=== PATIENT | female | born 1985 | race Caucasian/White ===

== ENCOUNTER → 2017-07-22 08:47 | Outpatient (CLI) | payer OTHER, SELFPAY ==
[2017-07-22 10:24] LABS: Absolute Lymphocyte Count 2.41 X10^3/ul (0.83-4.51); Absolute Neutrophil Count 3.5 X10^3/uL (2.0-7.7); Basophil# 0.03 X10^3/uL; Basophil% 0.5 % (0-1); Eosinophil# 0.25 X10^3/uL; Eosinophils% 3.8 % (0-5); Hematocrit 37.5 % (37-47); Hemoglobin 12.6 g/dl (12.0-15.0); Lymphocyte # 2.41 X10^3/ul (4.0); Lymphocyte % 36.2 % (19-41); Mean Corp Hgb Conc 33.6 g/gl (32-36); Mean Corpuscular Hgb 29.3 pg (27.0-32.0); Mean Corpuscular Volume 87.2 fL (81-99); Mean Platelet Vol. 10.5 fl (6.2-12.0); Monocyte# 0.45 X10^3/uL; Monocyte% 6.8 % (0-10); Neutrophil # 3.51 X10^3/uL (2.7-7.7); Neutrophil % 52.7 % (47-70); Platelet Count 306 K/mm3 (150-450); RBC Distribution Width SD 44.5 fl (35.1-43.9); White Blood Count 6.7 K/mm3 (4.4-11.0)
[2017-07-22 10:25] LABS: POSITIVE COUNT NO; POSITIVE DIFFERENTIAL NO; POSITIVE MORPHOLOGY NO
[2017-07-22 10:48] LABS: Anion Gap 7 (5-15); BUN 20 mg/dL (7-18); BUN/Creat Ratio 20.7 RATIO (10-20); Calcium,Total 8.7 mg/dL (8.5-10.1); Chloride 105 mmol/L (98-107); Cholesterol 172 mg/dL (200); Creatinine, Serum 0.96 mg/dL (0.55-1.02); EST Glomerular Filtration Rate 70 mL/min (>60); Est Glom Filt Rate - Afr Amer 85 mL/min (>60); Glucose 84 mg/dL (74-106); High Density Lipoprotein 41 mg/dL; Potassium 4.2 mmol/L (3.5-5.1); Sodium Level 139 mmol/L (136-145); Thyroid Stim Hormone (TSH) 1.63 uIU/mL (0.358-3.74); Triglycerides 113 mg/dL; Very Low Density Lipoprotein 23 mg/dL (5-40)
[2017-07-22 11:27] LABS: Vitamin D,25 Hydroxy 48.4 ng/mL (29.95-100.01)
== END ==
PROVIDERS: Family Provider Family Medicine; PCP Family Medicine; Visit Provider Family Medicine
DX: R53.83 Other fatigue (principal); R03.0 Elevated blood-pressure reading, without diagnosis of hypertension
CPT/HCPCS: 36415; 80048; 80061; 82306; 84443; 85025

== ENCOUNTER → 2017-11-03 11:32 | Outpatient (CLI) | payer OTHER, SELFPAY ==
[2017-11-03 14:14] LABS: hCG Titer Quant., Serum < 1 mIU/mL (<9 non-preg)
[2017-11-03 14:20] LABS: Free T3 2.7 pg/mL (2.18-3.98); T4 Free Direct 0.99 ng/dL (0.76-1.46); Thyroid Stim Hormone (TSH) 1.55 uIU/mL (0.358-3.74)
[2017-11-07 14:23] LABS: HPV Reflexed? NOT INDICATED
== END ==
PROVIDERS: Visit Provider Obstetrics & Gynecology
DX: Z12.4 Encounter for screening for malignant neoplasm of cervix (principal); N92.6 Irregular menstruation, unspecified
CPT/HCPCS: 36415; 84439; 84443; 84481; 84702; 88175; G0145

== ENCOUNTER → 2018-11-24 13:31 | Outpatient (CLI) | payer OTHER, SELFPAY ==
[2018-05-08 06:26] VITALS: BMI 29.7
== END ==
PROVIDERS: Visit Provider Obstetrics & Gynecology
DX: Z12.4 Encounter for screening for malignant neoplasm of cervix (principal); Z11.3 Encounter for screening for infections with a predominantly sexual mode of transmission

== ENCOUNTER → 2020-06-12 17:10 | Outpatient (CLI) | payer OTHER, SELFPAY ==
[2020-06-12 14:37] VITALS: BMI 34.0
[2020-06-12 18:12] LABS: Amphetamine Urine VISTA NEGATIVE (<1000 ng/mL); Barbiturate Urine VISTA NEGATIVE (< 200 ng/mL); Benzodiazepine Urine VISTA NEGATIVE (< 200 ng/mL); Cocaine Urine VISTA NEGATIVE (< 300 ng/mL); Ecstacy Urine VISTA NEGATIVE (< 500 ng/mL); Methadone Urine VISTA NEGATIVE (< 300 ng/mL); PCP Urine VISTA NEGATIVE (< 25 ng/mL); THC Urine VISTA NEGATIVE (< 50 ng/mL); Vista UDS pH Range 6
[2020-06-16 07:06] LABS: Chlamydia By Nucleic Acid AMP Negative (Negative)
[2020-06-16 16:07] LABS: Gonococcus By Nucleic Acid AMP Negative (Negative)
== END ==
PROVIDERS: PCP Family Medicine; Referring Provider Obstetrics & Gynecology; Visit Provider Obstetrics & Gynecology
DX: O09.90 Supervision of high risk pregnancy, unspecified, unspecified trimester (principal); Z3A.00 Weeks of gestation of pregnancy not specified
CPT/HCPCS: 80307; 87086; 87491; 87591

== ENCOUNTER → 2020-07-04 07:41 | Outpatient (CLI) | payer OTHER, SELFPAY ==
[2020-06-12 14:37] VITALS: BMI 34.0
[2020-07-04 09:13] LABS: NATERA MAILED SPECIMEN
[2020-07-04 09:25] LABS: Absolute Lymphocyte Count 1.92 X10^3/uL (0.83-4.51); Absolute Neutrophil Count 4.5 X10^3/uL (2.0-7.7); Basophil# 0.03 X10^3/uL; Basophil% 0.4 % (0-1); Eosinophil# 0.15 X10^3/uL; Eosinophils% 2.1 % (0-5); Hematocrit 37.3 % (37-47); Hemoglobin 12.1 g/dL (12.0-15.0); Lymphocyte # 1.92 X10^3/ul (0.83-4.51); Lymphocyte % 27.5 % (19-41); Mean Corp Hgb Conc 32.4 g/dL (32-36); Mean Corpuscular Hgb 29.6 pg (27.0-32.0); Mean Corpuscular Volume 91.2 fL (81-99); Mean Platelet Vol. 10.2 fl (6.2-12.0); Monocyte# 0.33 X10^3/uL; Monocyte% 4.7 % (0-10); NRBC Flagged by Analyzer 0 % (0-5); Neutrophil # 4.53 X10^3/uL (2.7-7.7); Platelet Count 253 K/mm3 (150-450); Red Blood Count 4.09 M/mm3 (4.2-5.4)
[2020-07-04 09:47] LABS: Glucose Challenge Gest 1H 50g 81 mg/dL (70-140)
[2020-07-04 10:32] LABS: HIV - WCH Non-Reactive (Nonreactive); Hepatitis B Surface Antigen Non-Reactive (Nonreactive); Hepatitis C Antibody Non-Reactive (Nonreactive); Rubella IgG Reactive (Nonreactive); Syphilis Antibodies Non-reactive
== END ==
PROVIDERS: PCP Family Medicine; Referring Provider Obstetrics & Gynecology; Visit Provider Obstetrics & Gynecology
DX: Z31.430 Encounter of female for testing for genetic disease carrier status for procreative management (principal); O09.511 Supervision of elderly primigravida, first trimester; Z3A.00 Weeks of gestation of pregnancy not specified
CPT/HCPCS: 36415; 82950; 85025; 86703; 86762; 86780; 86803; 86850; 86900; 86901; 87340

== ENCOUNTER → 2020-09-26 08:32 | Outpatient (CLI) | payer OTHER, SELFPAY ==
[2020-09-05 15:41] VITALS: BMI 34.0
== END ==
PROVIDERS: PCP Family Medicine; Visit Provider Obstetrics & Gynecology
DX: Z36.9 Encounter for antenatal screening, unspecified (principal)
CPT/HCPCS: 36415

== ENCOUNTER → 2020-10-17 09:05 | Outpatient (CLI) | payer OTHER, SELFPAY ==
[2020-10-03 15:30] VITALS: BMI 38.2
[2020-10-17 10:14] LABS: Absolute Lymphocyte Count 2.07 X10^3/uL (0.83-4.51); Absolute Neutrophil Count 9.3 X10^3/uL (2.0-7.7); Basophil# 0.03 X10^3/uL; Basophil% 0.2 % (0-1); Eosinophil# 0.26 X10^3/uL; Eosinophils% 2.1 % (0-5); Hematocrit 34.7 % (37-47); Hemoglobin 11.4 g/dL (12.0-15.0); Lymphocyte # 2.07 X10^3/ul (0.83-4.51); Lymphocyte % 16.8 % (19-41); Mean Corp Hgb Conc 32.9 g/dL (32-36); Mean Corpuscular Hgb 30.2 pg (27.0-32.0); Mean Corpuscular Volume 91.8 fL (81-99); Mean Platelet Vol. 10.2 fl (6.2-12.0); Monocyte# 0.58 X10^3/uL; Monocyte% 4.7 % (0-10); NRBC Flagged by Analyzer 0 % (0-5); Neutrophil % 75.6 % (47-70); Platelet Count 262 K/mm3 (150-450); RBC Distribution Width SD 43.4 fl (35.1-43.9); Red Blood Count 3.78 M/mm3 (4.2-5.4); White Blood Count 12.3 K/mm3 (4.4-11.0)
[2020-10-17 10:32] LABS: Glucose Challenge Gest 1H 50g 99 mg/dL (70-140)
== END ==
PROVIDERS: PCP Family Medicine; Referring Provider Obstetrics & Gynecology; Visit Provider Obstetrics & Gynecology
DX: Z13.1 Encounter for screening for diabetes mellitus (principal)
CPT/HCPCS: 82950; 85025

== ENCOUNTER → 2020-12-08 14:26 | Outpatient (CLI) | payer OTHER, SELFPAY ==
--- NOTE | 2020-12-08 14:27 | US_ITS ---
STUDY: SECOND AND THIRD TRIMESTER OBSTETRICAL ULTRASOUND - LIMITED REASON FOR EXAM: Female, 35 years old. growth PRIOR ULTRASOUND: Prior comparison studies are not available for review at this time. TECHNIQUE: Transabdominal TECHNICAL QUALITY: Adequate. FINDINGS: There is a single intrauterine fetus. The fetus is in a cephalic presentation. There is demonstrated cardiac activity with a heart rate of 135 bpm. There is a normal amniotic fluid volume. The largest amniotic fluid pocket measures 5.6 cm. The amniotic fluid index (DONATO) is 60.2 cm. The placenta is posterior in location and is not low lying. There are Grade 1 placental changes. The cervix measures cm in length: 3.3. Ovaries are not visualized. BIOMETRY: BPD: 86 mm: 34 weeks, 4 days HC: 316 mm: 35 weeks, 3 days AC: 314 mm: 35 weeks, 2 days FL: 65 mm: 33 weeks, 1 days CI: 78 FL/AC: 21 FL/BPD: 75 HC/AC: 1 age by current US: 34 weeks, 5 days. JOS by current US: 11.3.21. Estimated weight: 2515 grams, +/- 377 grams, 34 %. Age by LMP: 35 weeks, 2 days. JOS by LMP: 10.30.21. US/OB Limited With Biometrics IMPRESSION: There is a single live intrauterine with a heart rate of 135 bpm. age by current US: 34 weeks, 5 days. JOS by current US: 11.3.21. Estimated weight: 2515 grams, +/- 377 grams, 34 %. Electronically Signed: Siva Caba MD at 16:22 EDT , Service support ,
== END ==
PROVIDERS: PCP Family Medicine; Referring Provider Obstetrics & Gynecology; Visit Provider Obstetrics & Gynecology
DX: O99.211 Obesity complicating pregnancy, first trimester (principal); E66.9 Obesity, unspecified; Z3A.34 34 weeks gestation of pregnancy
CPT/HCPCS: 76816

== ENCOUNTER → 2020-12-19 17:17 | Outpatient (CLI) | payer OTHER, SELFPAY | PROVIDERS: PCP Family Medicine; Referring Provider Obstetrics & Gynecology; Visit Provider Obstetrics & Gynecology | DX: O09.90 Supervision of high risk pregnancy, unspecified, unspecified trimester (principal); Z3A.00 Weeks of gestation of pregnancy not specified | CPT/HCPCS: 87077; 87081; 87186 ==

== ENCOUNTER → 2020-12-26 17:08 | Outpatient (CLI) | payer OTHER, SELFPAY ==
[2020-12-26 17:39] LABS: Protein, Urine (Random) 14.9 mg/dL (<11.9); Protein:Creat Ratio 139 mg/g CRE (0-200)
== END ==
PROVIDERS: PCP Family Medicine; Referring Provider Obstetrics & Gynecology; Visit Provider Obstetrics & Gynecology
DX: Z34.93 Encounter for supervision of normal pregnancy, unspecified, third trimester (principal); Z3A.37 37 weeks gestation of pregnancy
CPT/HCPCS: 82570; 84156

== ENCOUNTER → 2021-01-09 17:01 | Outpatient (CLI) | payer OTHER, SELFPAY | PROVIDERS: PCP Family Medicine; Visit Provider Obstetrics & Gynecology | DX: Z34.93 Encounter for supervision of normal pregnancy, unspecified, third trimester (principal) | CPT/HCPCS: 87635; U0005; U0003 ==

== ENCOUNTER 2021-01-15 07:04 | Inpatient (IN) | payer OTHER, SELFPAY ==
[2021-01-15] VITALS (64 sets, daily range): BP systolic 119–166; BP diastolic 55–107; PULSE 77–121; TEMP 36.4–36.8; O2SAT 97–100; BMI 42.0
[2021-01-15] MEDS: Lactated Ringers 1,000 ML 150 ML IV ×2 (07:40→13:17)
[2021-01-15] MEDS: Oxytocin 30 units/NS 500 ml 30 UNITS/500 ML IV.SOLN IV (08:05)
[2021-01-15 08:07] LABS: Absolute Lymphocyte Count 2.39 X10^3/uL (0.83-4.51); Absolute Neutrophil Count 8.2 X10^3/uL (2.0-7.7); Basophil# 0.04 X10^3/uL; Basophil% 0.3 % (0-1); Eosinophil# 0.31 X10^3/uL; Eosinophils% 2.6 % (0-5); Hematocrit 34.4 % (37-47); Hemoglobin 11.5 g/dL (12.0-15.0); Lymphocyte # 2.39 X10^3/ul (0.83-4.51); Lymphocyte % 20.3 % (19-41); Mean Corp Hgb Conc 33.4 g/dL (32-36); Mean Corpuscular Hgb 29.8 pg (27.0-32.0); Mean Corpuscular Volume 89.1 fL (81-99); Mean Platelet Vol. 10.2 fl (6.2-12.0); Monocyte# 0.75 X10^3/uL; Monocyte% 6.4 % (0-10); NRBC Flagged by Analyzer 0 % (0-5); Neutrophil # 8.16 X10^3/uL (2.7-7.7); Neutrophil % 69.5 % (47-70); Platelet Count 230 K/mm3 (150-450); RBC Distribution Width CV 14.1 % (11.6-14.6); RBC Distribution Width SD 45.5 fl (35.1-43.9); Red Blood Count 3.86 M/mm3 (4.2-5.4); White Blood Count 11.8 K/mm3 (4.4-11.0)
--- NOTE | 2021-01-15 08:07 | HP.PCM.OB_ITS ---
HPI - General General Date of Admission: 01/15/21 HPI Narrative MICHELLE JOHNSON, is a 35 F who presents for iol sec to postdates and ama Maternal Data Information JOS Calculator Estimated Delivery Date Method Current WG Current Estimate 01/10/21 LMP (Certain) 40w 5d PFSH PFSH Medical History Positive GBS test Seasonal allergies SOB (shortness of breath) Home Medications multivitamin 1 tablet PO DAILY 06/03/20 [History Last Taken Unknown] cetirizine 10 mg tablet 10 mg PO DAILY PRN 10/17/20 [History Last Taken Unknown] Allergy/AdvReac Type Severity Reaction Status Date / Time Penicillins Allergy Unknown Unknown Verified 01/13/21 10:41 animal dander Allergy Unknown Verified 01/13/21 10:41 tree nut AdvReac Severe Other Verified 01/13/21 10:41 Family History Mother Hypertension Father Colon cancer Surgical History No significant past surgical history Social History adopted: No household members: spouse housing: house current occupational status: employed current occupation: [employer] Smoking Status: Never smoker second hand exposure: No alcohol intake: never substance use type: does not use seatbelt use: always do you feel safe at home: Yes additional social history: - Jesus Pelaez History 1 Elective abortions Hx Para Spontaneous abortions Hx # Term Pregnancies Ectopic pregnancies Hx # Pregnancies Multiple births # of living children Visit Details Expected Delivery Route/Plan Labor Preferences- CB/BF classes: declined labor support person: Jesus labor intervention preferences: open to standard interventions pain management options preferred: would like to go as long as possible without an epidural but open to epidural cut cord/dad catch: no - squeamish, patient wants to do both : no PP control planned: OCPs discussed possible routes of delivery and associated risks: discussed possible delivery modalities and possible indications for each including R/B/A of , VAVD, FAVD, and CS. questions answered. special requests: [] Plans covid status: got moderna flu vaccine: [] tdap vaccine: given rhogam: na LARC form signed: declined movement and labor precautions reviewed. Problem list reviewed and updated with the most current plan of care details and appropriate orders placed. Relevant counseling for the gestational age provided. Continue routine care and follow up unless otherwise noted in visit notes/problem list details OB Flowsheet Initial Weight: Not Recorded Date -?-?-?-?-?-?-?-?-?-?-?-?- EGA Weight BP Urine Prot -?-?-?-?-?-?-?-?-?-?-?-?- Glucose FHR FuHt Pres Dilation -?-?-?-?-?-?-?-?-?-?-?-?- Effaced St Visit Note 07/11/20 -?-?-?-?-?-?-?-?-?-?-?-?- 13w 6d 191 lb 132/80 -?-?-?-?-?-?-?-?-?-?-?-?- 163 -?-?-?-?-?-?-?-?-?-?-?-?- GP - no cramping or bleeding. Anatomy scan ordered. PRR. Having a girl! 08/08/20 -?-?-?-?-?-?-?-?-?-?-?-?- 17w 6d 203 lb 6 oz 128/78 Nega tive -?-?-?-?-?-?-?-?-?-?-?-?- Negative 150 -?-?-?-?-?-?-?-?-?-?-?-?- GP - no cramping or bleeding. Anatomy 10. 09/05/20 -?-?-?-?-?-?-?-?-?-?-?-?- 21w 6d 213 lb 126/80 -?-?-?-?-?-?-?-?-?-?-?-?- 150 -?-?-?-?-?-?-?-?-?-?-?-?- SM- no vb lof go od fm. afp screening. 10/03/20 -?-?-?-?-?-?-?-?-?-?-?-?- 25w 6d 216 lb 142/82 Negative -?-?-?-?-?-?-?-?-?-?-?-?- Negative 145 25 -?-?-?-?-?-?-?-?-?-?-?-?- GP - no LOF, VB, DFM, ctx. Discussed GCT next visit. 10/17/20 -?-?-?-?-?-?-?-?-?-?-?-?- 27w 6d 219 lb 122/80 -?-?-?-?-?-?-?-?-?-?-?-?- 145 28 -?-?-?-?-?-?-?-?-?-?-?-?- SM- no vb lof go od fm nor egular ctx tdap 10/31/20 -?-?-?-?-?-?-?-?-?-?-?-?- 29w 6d 224 lb 6 oz 132/76 Nega tive -?-?-?-?-?-?-?-?-?-?-?-?- Negative 140 30 -?-?-?-?-?-?-?-?-?-?-?-?- SM- no vb lof go od fm no reuglar ctx got first moderna shot 11/13/20 -?-?-?-?-?-?-?-?-?-?-?-?- 31w 5d 227 lb 4 oz 130/86 Nega tive -?-?-?-?-?-?-?-?-?-?-?-?- Negative 150 31 -?-?-?-?-?-?-?-?-?-?-?-?- GP - no LOF, VB, DFM, ctx. LARC form signed. 11/27/20 -?-?-?-?-?-?-?-?-?--?-?-?- 33w 5d 229 lb 136/76 Negative -?-?-?-?-?-?-?-?-?-?-?-?- Negative 140 34 -?-?-?-?-?-?-?-?-?-?-?-?- SM- no vb lof go od fm no regular ctx declined 12/11/20 -?-?-?-?-?-?-?-?-?-?-?-?- 35w 5d 231 lb 132/86 Negative -?-?-?-?-?-?-?-?-?-?-?-?- Negative 140 36 -?-?-?-?-?-?-?--?-?-?-?-?- SM- no vb lof go od fm no regular ctx 12/19/20 -?-?-?-?-?-?-?-?-?-?-?-?- 36w 6d 235 lb 122/80 Negative -?-?-?-?-?-?-?-?-?-?-?-?- Negative 125 37 Cephalic 1 -?-?-?-?-?-?-?-?-?-?-?-?- 50 -3 GP - no LO F, VB, DFM, ctx. Discussed labor preferences and routes of delivery. 12/26/20 -?-?-?-?-?--?-?-?-?-?-?-?- 37w 6d 241 lb 140/80 132/82 Trace -?-?-?-?-?-?-?-?-?-?-?-?- Negative 130 38 Cephalic 2 -?-?-?-?-?-?-?-?-?-?-?-?- SM- no vb lof go od fm no regular ctx 01/02/21 -?-?-?-?-?-?-?-?-?-?-?-?- 38w 6d 239 lb 110/68 Negative -?-?-?-?-?-?-?-?-?-?-?-?- Negative 130 39 Cephalic -?-?-?-?-?-?-?-?-?-?-?-?- SM- no vb lof go od fm today some dec fm another day no regular ctx, reviewed kik counts 01/09/21 -?-?-?-?-?-?-?-?-?-?-?-?- 39w 6d 241 lb -?-?-?-?-?-?-?-?-?-?-?-?- 130 39 Cephalic 3 -?-?-?-?-?-?-?-?-?-?-?-?- Sm- no vb lof go od fm no reuglar ctx 01/13/21 -?-?-?-?-?-?-?--?-?-?-?-?- 40w 3d 239 lb 119/81 Negative -?-?-?-?-?-?-?-?-?-?-?-?- Negative 150 4 -?-?-?-?-?-?-?-?-?-?-?-?- 60 -1 Sm- no vb lof good fm no regular ctx plan IOL 01/15/21 -?-?-?-?-?-?-?-?-?-?-?-?- 40w 5d 236 lb 15.951 oz 136/85 -?-?-?-?-?-?-?-?-?-?-?-?- -?-?-?-?-?-?-?--?-?-?-?-?- NST FHR Rate Baby A Baseline: 130 Variability:: Moderate Accelerations:: 15 x 15 Decelerations:: None NST Reactive:: Yes FHR Category:: Category I Uterine Activity:: irregular ROS Constitutional Constitutional: Reports systems reviewed and no addt'l complaints, except as documented Eyes Eyes: Denies change in vision ENT HEENT: Reports systems reviewed and no addt'l complaints, except as documented; Denies headache(s) Cardiovascular Cardiovascular: Reports systems reviewed and no addt'l complaints, except as documented; Denies chest pain or dyspnea Respiratory/Chest Respiratory/Chest: Reports systems reviewed and no addt'l complaints, except as documented Gastrointestinal Gastrointestinal: Reports systems reviewed and no addt'l complaints, except as documented; Denies abdominal pain Genitourinary Genitourinary: Reports systems reviewed and no addt'l complaints, except as documented, contractions Details: present (irregular) and movement Details: present; Denies dysuria or genital lesions Musculoskeletal Musculoskeletal: Reports systems reviewed and no addt'l complaints, except as documented Neurologic Neurologic: Reports systems reviewed and no addt'l complaints, except as documented Endocrine Endocrinology: Reports systems reviewed and no addt'l complaints, except as documented Vital Signs Vital Signs Vital Signs: 01/15/21 08:01 Pulse Rate 93 Blood Pressure 136/85 H BP Systolic 136 BP Diastolic 85 Weight Weight: 236 lb 15.951 oz Body Mass Index (BMI) 42.0 Physical Exam Const alert, oriented x3, no apparent distress and healthy appearing HEENT normocephalic and moist oral mucous membranes Head and Scalp: atraumatic Neck full ROM, no lymphadenopathy, supple and thyroid normal General: trachea midline Lymph Lymphatic: no lymphadenopathy noted Chest inspection of chest normal Resp normal respiratory effort Cardio regular rate GI normal to inspection, nondistended, normoactive bowel sounds, soft to palpation and non-tender Inspection: gravid external exam normal Manual OB Exam: estimated gestational size appropriate, presentation cephalic, dilated, effaced and station Extremity normal to inspection General Extremity: Negative for edema Skin no rashes or lesions noted Neuro no focal motor deficits and deep tendon reflexes 2+ bilaterally Motor Exam: strength 5/5 throughout and clonus absent Psych mental status grossly normal Labs Labs Labs: Blood Type O POSITIVE Antibody Screen NEGATIVE Hct 34.7 % (37-47) L Hgb 11.4 g/dL (12.0-15.0) L Pap Smear Negative Obstetrics US Syphilis Total Ab Non-reactive Rubella IgG Antibody Reactive (Nonreactive) Hep Bs Antigen Non-Reactive (Nonreactive) Neisseria gonorrhoeae DNA (JULIO CÉSAR) Negative (Negative) HIV 1&2 Antibody Non-Reactive (Nonreactive) Glucose 1 Hr 50 gm 99 mg/dL (70-140) Miscellaneous Test Assessment & Plan (1) Lab test negative for COVID-19 virus: COMMENT: 01/09/21 (2) Positive GBS test: COMMENT: clinda resistant. plan ancef for non anaphylactic reaction to pcn allergy (3) Obesity affecting : QUALIFIERS: Trimester: first trimester Qualified Code(s): O99.211 - Obesity complicating , first trimester COMMENT: BMI 34 at NOB. 1st trimester GCT. (4) Supervision of high risk , antepartum: COMMENT: PRR JOS: 01/10/21, girl! Spouse: Jesus (5) AMA (advanced maternal age) primigravida 35+: QUALIFIERS: Trimester: first trimester Qualified Code(s): O09.511 - Supervision of elderly primigravida, first trimester COMMENT: growth scan at 36 weeks (6) : QUALIFIERS: Weeks of gestation: 38 weeks Qualified Code(s): Z3A.38 - 38 weeks gestation of COMMENT: carrier- neg . Declind NTD screen. genetic low risk. Anatomy US normal PLAN: Patient presents IAL, plan expectant management for , pitocin/AROM if needed. Pain management: Plans epidural. GBS positive plan IV PCN. Management of any complications: None I have reviewed the [facility] and made any clinically relevant updates.
[2021-01-15] MEDS: DiphenhydrAMINE 50 MG/ML Syringe IV (11:13)
[2021-01-15] MEDS: fentaNYL-bupivacaine (epidural) 100 ML BAG EPIDURAL ×2 (11:50→16:50)
[2021-01-15] MEDS: Cefazolin 2 GM in 0.9% Normal Saline 100 ML IV ×2 (13:50→19:59)
[2021-01-15] MEDS: Lactated Ringers 1,000 ML 200 ML IV (18:30)
--- NOTE | 2021-01-15 20:12 | OP.PCM_ITS ---
Assessment & Plan (1) Lab test negative for COVID-19 virus: COMMENT: 01/09/21 (2) Positive GBS test: COMMENT: clinda resistant. plan ancef for non anaphylactic reaction to pcn allergy (3) Obesity affecting : QUALIFIERS: Trimester: first trimester Qualified Code(s): O99.211 - Obesity complicating , first trimester COMMENT: BMI 34 at NOB. 1st trimester GCT. (4) Supervision of high risk , antepartum: COMMENT: PRR JOS: 01/10/21, girl! Spouse: Jesus (5) AMA (advanced maternal age) primigravida 35+: QUALIFIERS: Trimester: first trimester Qualified Code(s): O09.511 - Supervision of elderly primigravida, first trimester COMMENT: growth scan at 36 weeks (6) : QUALIFIERS: Weeks of gestation: 38 weeks Qualified Code(s): Z3A.38 - 38 weeks gestation of COMMENT: carrier- neg . Declind NTD screen. genetic low risk. Anatomy US normal (7) Vaginal delivery: COMMENT: iol postdates SM Maternal Data Information JOS Calculator Estimated Delivery Date Method Current WG Current Estimate 01/10/21 LMP (Certain) 40w 5d Vaginal Delivery Operative Information Date of Procedure: 01/15/21 Pre-Operative Diagnosis: Iol Post-Operative Diagnosis: same Surgery / Procedure Performed: Spontaneous Vaginal Delivery Type of Anesthesia: Epidural Special Medications: none Estimated Blood Loss: 200 Fluids Replaced: crystalloid Findings Description of Procedure: Patient began pushing and delivered the head in the [EDITH] presentation. The head was delivered atraumatically . The anterior and posterior shoulders delivered without complication followed by the rest of the and the was placed on the maternal abdomen. Delayed cord clamping was employed for approximately 60 seconds. Cord was clamped and cut and gentle traction was applied to the cord and the placenta delivered spontaneously immediately following it was noted to be intact with three-vessel cord. The perineum and vagina were inspected and noted to have a second-degree perineal laceration repaired in the usual fashion with 3-0 Vicryl Rapide. EBL was 200. Patient and infant tolerated delivery well. Presentation: EDITH Amniotic Membrane Rupture Type: Artificial Amniotic Fluid Description: Clear Placental Delivery Description: Spontaneous Placenta Disposition: [facility] Cord Vessel Description: 3 Vessels Cord Entanglement: None Infant A Gender: Female Delayed Cord Clamping: Yes Post Vaginal Delivery Medications Given After Delivery: IV Pitocin Episiotomy Description: None Laceration: None Complication Complications: None Procedures Urinary/Genital [id number]: [id number] Vaginal Delivery [facility]
--- NOTE | 2021-01-15 20:14 | PCM.DC ---
Discharge Instructions Diet Discharge Diet: No restrictions Activity Discharge Activity: Return to Normal Activity, May Not Drive (while taking narcotic pain medications.) and May Shower May resume sexual activity in: 4-6 weeks Dressing / Incision Call your doctor if your incision/area has: Continuous Slow Oozing, Sudden Increased Bleeding, Increased Pain/ Swelling, Increased Redness and Foul Smelling Discharge Follow Up Care Please Follow Up With: Tiffanie Leblanc MD When: Call [phone] to make an appointment with your doctor in 6 weeks. If you had elevated blood pressure or 4th degree laceration, you will need to be seen in 2 weeks. Test Results: Test results from this visit will be discussed in further detail at your follow-up appointment, if applicable. Discharge Plan Admission Admit Date/Time: 01/15/21 07:04 Primary Reason for Your Visit: vaginal delivery Attending Provider: Tiffanie Leblanc Primary Care Provider: Guille Butler Discharge Orders/Prescriptions Prescriptions: No Action multivitamin Tablet 1 tablet PO DAILY RF: 0 cetirizine [Zyrtec] 10 mg tablet 10 mg PO DAILY PRN (Reason: Allergic Symptoms) RF: 0 Referrals / Follow Up: Guille Butler MD [Primary Care Provider] - Disposition Disposition (needs filled in before D/C Order can be placed): Home, Self Care
[2021-01-15] MEDS: Oxytocin 30 units/NS 500 ml 30 UNITS/500 ML IV.SOLN 334 UNITS IV (20:35)
[2021-01-16 03:45] VITALS: BP 137/82; PULSE 77; RESP 18; TEMP 36.6; O2SAT 98
--- NOTE | 2021-01-16 05:30 | NURSING ---
Second void completed, pt felt that she emptied bladder but missed hat.
[2021-01-16] MEDS: Naproxen 500 MG Tablet PO ×3 (05:40→21:11)
--- NOTE | 2021-01-16 08:04 | PCM.PN.OB ---
Subjective Subjective Patient doing well without complaints. Tolerating PO. Ambulating and voiding without difficulty. feeding well. Denies chest pain, shortness of breath, calf pain/swelling, fevers, chills, lightheadedness. Objective Data Objective Data Vital Signs: Vital Signs Temp Pulse Resp BP Pulse Ox 97.8 F 77 18 137/82 H 98 01/16/21 03:45 01/16/21 03:45 01/16/21 03:45 01/16/21 03:45 01/16/21 03:45 Oxygen Delivery Method Room Air Weight: 236 lb 15.951 oz Body Mass Index (BMI) 42.0 Intake & Output: Intake and Output for Last 24 Hours 01/14/21 01/15/21 01/16/21 23:59 23:59 23:59 Intake Total 4789.07 / 4789.07 Output Total 600 / 600 800 / 800 Balance 4189.07 / 4189.07 -800 / -800 Lab / Micro Data Result Diagrams: 01/15/21 07:45 Labs: Laboratory Results - last 24 hr 01/15/21 07:45: WBC 11.8 H, RBC 3.86 L, Hgb 11.5 L, Hct 34.4 L, MCV 89.1, MCH 29.8, MCHC 33.4, RDW Std Deviation 45.5 H, RDW Coeff of Bobbi 14.1, Plt Count 230, MPV 10.2, Immature Gran % (Auto) 0.900, Neut % (Auto) 69.5, Lymph % (Auto) 20.3, [place] % (Auto) 6.4, Eos % (Auto) 2.6, Baso % (Auto) 0.3, Absolute Neuts (auto) 8.2 H, Absolute Lymphs (auto) 2.39, Nucleated RBC % 0 01/15/21 07:45: Blood Type O POSITIVE, Antibody Screen NEGATIVE ROS Constitutional Constitutional: Reports systems reviewed and no addt'l complaints, except as documented Cardiovascular Cardiovascular: Reports systems reviewed and no addt'l complaints, except as documented Respiratory/Chest Respiratory/Chest: Reports systems reviewed and no addt'l complaints, except as documented Gastrointestinal Gastrointestinal: Reports systems reviewed and no addt'l complaints, except as documented Physical Exam Const alert, oriented x3 and no apparent distress HEENT Head and Scalp: atraumatic Resp normal respiratory effort GI soft to palpation and non-tender Bimanual Exam - Vag & Uterus: uterus non-tender Uterus Palpation: uterus fundus firm (below Umbilicus) Assessment & Plan (1) Vaginal delivery: COMMENT: iol postdates SM girl Miranda PLAN: s/p PPD # 1 1. routine post delivery care 2. breast feeding- support given 3. rh positive 4. rubella immune
[2021-01-16 08:10] VITALS: BP 118/70; PULSE 69; RESP 16; TEMP 36.5; O2SAT 99
[2021-01-16 12:14] VITALS: BP 117/71; PULSE 74; RESP 16; TEMP 36.6
[2021-01-16 16:11] VITALS: BP 130/78; PULSE 86; RESP 16; TEMP 36.9
[2021-01-16] MEDS: Benzocaine/Lanolin/Aloe Vera 1 SPRAY EACH TOPICAL (21:11)
[2021-01-16 21:13] VITALS: BP 133/73; PULSE 81; RESP 18; TEMP 36.7; O2SAT 97
[2021-01-17 01:38] VITALS: BP 126/78; PULSE 76; RESP 18; TEMP 36.6; O2SAT 97
--- NOTE | 2021-01-17 06:36 | PCM.PN.OB ---
Subjective Subjective Patient doing well without complaints. Tolerating PO. Ambulating and voiding without difficulty. feeding well. Denies chest pain, shortness of breath, calf pain/swelling, fevers, chills, lightheadedness. Objective Data Objective Data Vital Signs: Vital Signs Temp Pulse Resp BP Pulse Ox 98 F 76 18 126/78 H 97 01/17/21 01:38 01/17/21 01:38 01/17/21 01:38 01/17/21 01:38 01/17/21 01:38 Oxygen Delivery Method Room Air Weight: 236 lb 15.951 oz Body Mass Index (BMI) 42.0 Intake & Output: Intake and Output for Last 24 Hours 01/15/21 01/16/21 01/17/21 23:59 23:59 23:59 Intake Total 4789.07 / 4789.07 Output Total 600 / 600 800 / 800 Balance 4189.07 / 4189.07 -800 / -800 Lab / Micro Data Result Diagrams: 01/15/21 07:45 ROS Constitutional Constitutional: Reports systems reviewed and no addt'l complaints, except as documented Cardiovascular Cardiovascular: Reports systems reviewed and no addt'l complaints, except as documented Respiratory/Chest Respiratory/Chest: Reports systems reviewed and no addt'l complaints, except as documented Gastrointestinal Gastrointestinal: Reports systems reviewed and no addt'l complaints, except as documented Physical Exam Const alert, oriented x3 and no apparent distress HEENT Head and Scalp: atraumatic Resp normal respiratory effort GI soft to palpation and non-tender Bimanual Exam - Vag & Uterus: uterus non-tender Uterus Palpation: uterus fundus firm (below Umbilicus) Assessment & Plan (1) Vaginal delivery: COMMENT: iol postdates SM girl Miranda PLAN: s/p PPD # 2 1. routine post delivery care 2. breast feeding- support given 3. rh positive 4. rubella immune
[2021-01-17 08:30] VITALS: BP 131/82; PULSE 80; RESP 18; TEMP 36.3; O2SAT 99
== END 2021-01-17 08:35 | disposition home or self-care (01) | DRG 806 ==
PROVIDERS: Admitting Provider Obstetrics & Gynecology; PCP Family Medicine; Referring Provider Obstetrics & Gynecology; Visit Provider Obstetrics & Gynecology
DX: O48.0 Post-term pregnancy (principal); O98.82 Other maternal infectious and parasitic diseases complicating childbirth; Z37.0 Single live birth; O70.1 Second degree perineal laceration during delivery; B95.1 Streptococcus, group B, as the cause of diseases classified elsewhere; O99.824 Streptococcus B carrier state complicating childbirth; Z82.49 Family history of ischemic heart disease and other diseases of the circulatory system; Z80.0 Family history of malignant neoplasm of digestive organs; Z88.0 Allergy status to penicillin; Z91.09 Other allergy status, other than to drugs and biological substances; O99.214 Obesity complicating childbirth; E66.9 Obesity, unspecified; Z3A.40 40 weeks gestation of pregnancy
CPT/HCPCS: 59025; 59050; 85025; 86850; 86900; 86901; 99218; J7040; J7120; G0378

== ENCOUNTER → 2021-02-26 12:50 | Outpatient (CLI) | payer OTHER, SELFPAY ==
[2021-03-04 22:06] LABS: HPV Genotype 16, Aptima Negative (Negative)
[2021-03-04 22:33] LABS: HPV APTIMA, High Risk Positive (Negative); HPV Genotype 18,45 Aptima Negative (Negative)
== END ==
PROVIDERS: PCP Family Medicine; Referring Provider Obstetrics & Gynecology; Visit Provider Obstetrics & Gynecology
DX: Z12.4 Encounter for screening for malignant neoplasm of cervix (principal)
CPT/HCPCS: 87624; 88175; G0145

== ENCOUNTER → 2023-07-01 | Outpatient (CLI) | payer OTHER, SELFPAY ==
[2023-07-04 20:07] LABS: Chlamydia By Nucleic Acid AMP Negative (Negative); Gonococcus By Nucleic Acid AMP Negative (Negative)
[2023-07-06 13:07] LABS: HPV APTIMA, High Risk Negative (Negative)
== END | disposition home or self-care (01) ==
LOC: LABSPEC 16:54
PROVIDERS: PCP Family Medicine; Referring Provider Registered Nurse; Visit Provider Registered Nurse
DX: Z34.90 Encounter for supervision of normal pregnancy, unspecified, unspecified trimester (principal)
CPT/HCPCS: 87491; 87591; 87624; 88175; G0145

== ENCOUNTER → 2023-07-22 | Outpatient (CLI) | payer OTHER, SELFPAY ==
[2023-07-22 12:15] LABS: Absolute Lymphocyte Count 2.21 X10^3/uL (0.83-4.51); Absolute Neutrophil Count 6.4 X10^3/uL (2.0-7.7); Basophil# 0.01 X10^3/uL; Basophil% 0.1 % (0-1); Eosinophil# 0.08 X10^3/uL; Eosinophils% 0.9 % (0-5); Hematocrit 37.2 % (37-47); Hemoglobin 12.4 g/dL (12.0-15.0); Lymphocyte # 2.21 X10^3/ul (0.83-4.51); Mean Corp Hgb Conc 33.3 g/dL (32-36); Mean Corpuscular Hgb 29.4 pg (27.0-32.0); Mean Corpuscular Volume 88.2 fL (81-99); Mean Platelet Vol. 10.4 fl (6.2-12.0); Monocyte# 0.43 X10^3/uL; Monocyte% 4.7 % (0-10); NRBC Flagged by Analyzer 0 % (0-5); Neutrophil # 6.44 X10^3/uL (2.7-7.7); Platelet Count 253 K/mm3 (150-450); RBC Distribution Width SD 42.1 fl (35.1-43.9); Red Blood Count 4.22 M/mm3 (4.2-5.4); White Blood Count 9.2 K/mm3 (4.4-11.0)
[2023-07-22 13:16] LABS: HIV - WCH Non-Reactive (Nonreactive); Hepatitis B Surface Antigen Non-Reactive (Nonreactive); Hepatitis C Antibody Non-Reactive (Nonreactive); Rubella IgG Reactive (Nonreactive); Syphilis Antibodies Non-reactive
== END | disposition home or self-care (01) ==
LOC: LAB 11:25
PROVIDERS: PCP Family Medicine; Referring Provider Registered Nurse; Visit Provider Registered Nurse
DX: O09.521 Supervision of elderly multigravida, first trimester (principal); O09.511 Supervision of elderly primigravida, first trimester; Z3A.00 Weeks of gestation of pregnancy not specified; O99.210 Obesity complicating pregnancy, unspecified trimester; Z11.3 Encounter for screening for infections with a predominantly sexual mode of transmission
CPT/HCPCS: 36415; 83036; 85025; 86703; 86762; 86780; 86803; 86850; 86900; 86901; 87340

== ENCOUNTER → 2023-07-27 | Outpatient (CLI) | payer OTHER, SELFPAY | END | disposition home or self-care (01) | LOC: LABSPEC 16:23 | PROVIDERS: PCP Family Medicine; Visit Provider Obstetrics & Gynecology | DX: O09.90 Supervision of high risk pregnancy, unspecified, unspecified trimester (principal); Z3A.00 Weeks of gestation of pregnancy not specified | CPT/HCPCS: 87086 ==

== ENCOUNTER → 2023-09-05 | Outpatient (CLI) | payer OTHER, SELFPAY | END | disposition home or self-care (01) | PROVIDERS: PCP Family Medicine; Visit Provider Advanced Practice Midwife | DX: Z36.9 Encounter for antenatal screening, unspecified (principal) | CPT/HCPCS: 36415 ==

== ENCOUNTER → 2023-10-25 | Outpatient (CLI) | payer OTHER, SELFPAY ==
--- NOTE | 2023-10-25 08:44 | US_ITS ---
STUDY: SECOND AND THIRD TRIMESTER OBSTETRICAL ULTRASOUND REASON FOR EXAM: Female, 38 years old growth US LMP: April 30, 2023. TECHNIQUE: Transabdominal TECHNICAL QUALITY: Adequate. PRIOR ULTRASOUND: None. FINDINGS: There is a single intrauterine fetus. The fetus is in a breech presentation. There is demonstrated cardiac activity with a heart rate of 158 bpm. There is a normal amniotic fluid volume. The largest amniotic fluid pocket measures 6.0 cm. The amniotic fluid index (DONATO) is within normal limits. The placenta is posterior in location and is not low lying. There are Grade 0 placental changes. The cervix measures 3.4 cm in length. The adnexal regions are not visualized. BIOMETRY: BPD: 6.21 cm: 25 weeks, 1 days HC: 23.08 cm: 24 weeks, 1 days AC: 21.66 cm: 26 weeks, 1 days FL: 4.56 cm: 25 weeks, 1 days CI: 76% FL/BPD: 73% FL/HC: FL/AC: 21% HC/AC: 1.07 age by current US: 25 weeks, 2 days. JOS by current US: February 05, 2020. Estimated weight: 842 grams, +/- 126 grams, 51 %. Age by LMP: 25 weeks, 3 days. OJS by LMP: February 04, 2024. US/OB Limited With Biometrics IMPRESSION: Single live intrauterine gestation with mean gestational age of 25 weeks and 2 days. Electronically Signed: Tad Mendoza MD at 8:35 EDT ,
== END | disposition home or self-care (01) ==
LOC: OPUS 08:43
PROVIDERS: PCP Family Medicine; Referring Provider Advanced Practice Midwife; Visit Provider Advanced Practice Midwife
DX: O09.529 Supervision of elderly multigravida, unspecified trimester (principal); Z3A.00 Weeks of gestation of pregnancy not specified
CPT/HCPCS: 76816

== ENCOUNTER → 2023-11-15 | Outpatient (CLI) | payer OTHER, SELFPAY ==
[2023-11-15 09:26] LABS: Absolute Lymphocyte Count 2.02 X10^3/uL (0.83-4.51); Absolute Neutrophil Count 7.9 X10^3/uL (2.0-7.7); Basophil# 0.03 X10^3/uL; Basophil% 0.3 % (0-1); Eosinophils% 1.9 % (0-5); Hematocrit 33.6 % (37-47); Hemoglobin 10.9 g/dL (12.0-15.0); Lymphocyte # 2.02 X10^3/ul (0.83-4.51); Lymphocyte % 18.9 % (19-41); Mean Corp Hgb Conc 32.4 g/dL (32-36); Mean Corpuscular Hgb 29.1 pg (27.0-32.0); Mean Corpuscular Volume 89.6 fL (81-99); Monocyte# 0.46 X10^3/uL; Monocyte% 4.3 % (0-10); NRBC Flagged by Analyzer 0 % (0-5); Neutrophil # 7.87 X10^3/uL (2.7-7.7); Neutrophil % 73.8 % (47-70); Platelet Count 234 K/mm3 (150-450); RBC Distribution Width CV 13.3 % (11.6-14.6); RBC Distribution Width SD 43.8 fl (35.1-43.9); Red Blood Count 3.75 M/mm3 (4.2-5.4); White Blood Count 10.7 K/mm3 (4.4-11.0)
[2023-11-15 09:47] LABS: Glucose Challenge Gest 1H 50g 139 mg/dL (70-140)
[2023-11-15 10:13] LABS: HIV - WCH Non-Reactive (Nonreactive); Syphilis Antibodies Non-reactive
== END | disposition home or self-care (01) ==
LOC: LAB 08:25
PROVIDERS: PCP Family Medicine; Referring Provider Obstetrics & Gynecology; Visit Provider Obstetrics & Gynecology
DX: Z13.1 Encounter for screening for diabetes mellitus (principal); O09.90 Supervision of high risk pregnancy, unspecified, unspecified trimester; Z3A.16 16 weeks gestation of pregnancy
CPT/HCPCS: 36415; 82950; 85025; 86703; 86780

== ENCOUNTER → 2023-11-18 | Outpatient (CLI) | payer OTHER, SELFPAY ==
[2023-11-18 07:27] LABS: Bedside Glucose 88 mg/dL (74-106)
[2023-11-18 09:58] LABS: Glucose GTT-Gestation. Fasting 89 mg/dL (<105)
[2023-11-18 10:25] LABS: Glucose GTT-Gestational 1 Hr 183 mg/dL (<190)
[2023-11-18 10:53] LABS: Glucose GTT-Gestational 2 Hr 151 mg/dL (<165)
[2023-11-18 11:14] LABS: Glucose GTT-Gestational 3 Hr 135 L (<145)
== END | disposition home or self-care (01) ==
LOC: LAB 06:56
PROVIDERS: PCP Family Medicine; Referring Provider Nurse Practitioner Women's Health; Visit Provider Nurse Practitioner Women's Health
DX: Z13.1 Encounter for screening for diabetes mellitus (principal)
CPT/HCPCS: 36415; 82951; 82952; 82962

== ENCOUNTER → 2023-11-25 | Outpatient (CLI) | payer OTHER, SELFPAY ==
--- NOTE | 2023-11-25 08:51 | US_ITS ---
STUDY: SECOND AND THIRD TRIMESTER OBSTETRICAL ULTRASOUND - LIMITED REASON FOR EXAM: Female, 38 years old 28 week growth LMP: April 30, 2023. PRIOR ULTRASOUND: Comparison is made with prior study dated October 25, 2023. TECHNIQUE: Transabdominal TECHNICAL QUALITY: Adequate. FINDINGS: There is a single intrauterine fetus. The fetus is in a breech presentation. There is demonstrated cardiac activity with a heart rate of 144 bpm. There is a normal amniotic fluid volume. The largest amniotic fluid pocket measures 5.3 cm x 5.5 cm. The amniotic fluid index (DONATO) is 17.6 cm. The placenta is posterior in location and is not low lying. There are Grade 0 placental changes. The cervix measures 5.4 cm in length. BIOMETRY: BPD: 7.72 cm: 31 weeks, 0 days HC: 28.36 cm: 31 weeks, 1 days AC: 26.7 cm: 30 weeks, 5 days FL: 5.42 cm: 28 weeks, 5 days Age by LMP: 29 weeks, 6 days. JOS by LMP: February 04, 2024. age by prior US: 30 weeks, 0 days. JOS by prior US: February 05, 2024. age by current US: 30 weeks, 2 days. JOS by current US: February 01, 2024. Estimated weight: 1535 grams, +/- 230 grams, 50 percentile. US/OB Limited With Biometrics IMPRESSION: Single live intrauterine gestation with mean gestational age of 30 weeks. The measurements obtained today fall within normal expected range. Electronically Signed: Tad Mendoza MD at 10:51 EDT ,
== END | disposition home or self-care (01) ==
PROVIDERS: PCP Family Medicine; Referring Provider Advanced Practice Midwife; Visit Provider Advanced Practice Midwife
DX: O09.529 Supervision of elderly multigravida, unspecified trimester (principal); Z3A.00 Weeks of gestation of pregnancy not specified
CPT/HCPCS: 76816

== ENCOUNTER → 2023-12-27 | Outpatient (CLI) | payer OTHER, SELFPAY ==
--- NOTE | 2023-12-27 08:59 | US_ITS ---
HISTORY: growth. TECHNIQUE: Transabdominal pelvic ultrasound was performed. 54 images. COMPARISON: 11/25/2023. FINDINGS: INTRAUTERINE GESTATION(s): Single. PRESENTATION: Breech. HEART MOTION: 155 bpm. PLACENTA: Fundal, grade 1. CERVIX: Not well-visualized. AMNIOTIC FLUID INDEX (DONATO): 23.9 cm. Largest fluid pocket 10 cm. biometry- BIPARIETAL DIAMETER: 9.1 cm, corresponding to 36 weeks 6 days. HEAD CIRCUMFERENCE: 11.1 cm, corresponding to 36 weeks 2 days. ABDOMINAL CIRCUMFERENCE: 33.2 cm, corresponding to 37 weeks 1 day. FEMUR LENGTH: 6.5 cm, corresponding to 33 weeks 3 days. ESTIMATED GESTATIONAL AGE: 36 weeks 0 days. ESTIMATED DUE DATE (JOS): 01/24/2024. ESTIMATED WEIGHT: 2878 g corresponding to 89th percentile. ANATOMY: US/OB Limited With Biometrics IMPRESSION: Single living intrauterine in breech presentation with an estimated gestational age of 36 weeks 0 days. DONATO upper limits of normal at 23.9 cm. Electronically Signed: Mariely Gardner MD at 10:33 EDT ,
== END | disposition home or self-care (01) ==
PROVIDERS: PCP Family Medicine; Referring Provider Advanced Practice Midwife; Visit Provider Advanced Practice Midwife
DX: O09.529 Supervision of elderly multigravida, unspecified trimester (principal); Z3A.00 Weeks of gestation of pregnancy not specified
CPT/HCPCS: 76816

== ENCOUNTER → 2024-01-13 | Outpatient (CLI) | payer OTHER, SELFPAY | END | disposition home or self-care (01) | LOC: LABSPEC 11:41 | PROVIDERS: PCP Family Medicine; Referring Provider Advanced Practice Midwife; Visit Provider Advanced Practice Midwife | DX: O09.93 Supervision of high risk pregnancy, unspecified, third trimester (principal); Z3A.00 Weeks of gestation of pregnancy not specified | CPT/HCPCS: 87081 ==

== ENCOUNTER → 2024-01-25 | Outpatient (CLI) | payer OTHER, SELFPAY ==
--- NOTE | 2024-01-25 12:19 | US_ITS ---
STUDY: SECOND AND THIRD TRIMESTER OBSTETRICAL ULTRASOUND - LIMITED REASON FOR EXAM: Female, 38 years old 39 week growth US LMP: April 30, 2023. PRIOR ULTRASOUND: Comparison is made with prior examination dated December 27, 2023. TECHNIQUE: Transabdominal TECHNICAL QUALITY: Adequate. FINDINGS: There is a single intrauterine fetus. The fetus is in a breech presentation. There is demonstrated cardiac activity with a heart rate of 135 bpm. There is a normal amniotic fluid volume. The largest amniotic fluid pocket measures 10.8 cm. The amniotic fluid index (DONATO) is 34.1 cm. The placenta is fundal in location. There are Grade 2 placental changes. BIOMETRY: BPD: 10 cm: 41 weeks, 1 days: 10% HC: 34.5 cm: 40 weeks, 0 days: 68% AC: 38.4 cm: weeks, days: 100% FL: 7.4 cm: 37 weeks, 5 days: 33% Age by LMP: 38 weeks, 4 days. JOS by LMP: Number 2023. age by prior US: 40 weeks, 1 days. JOS by prior US: January 24, 2024. age by current US: 39 weeks, 4 days. JOS by current US: January 28, 2024. Estimated weight: 4251 grams, +/- 653 grams, 98 percentile. US/OB Limited With Biometrics IMPRESSION: Live intrauterine gestation with a mean gestational age of 39 weeks and 4 days. Electronically Signed: Tad Mendoza MD at 15:37 EST ,
== END | disposition home or self-care (01) ==
LOC: OPUS 12:19
PROVIDERS: PCP Family Medicine; Referring Provider Advanced Practice Midwife; Visit Provider Advanced Practice Midwife
DX: O09.529 Supervision of elderly multigravida, unspecified trimester (principal); Z3A.36 36 weeks gestation of pregnancy
CPT/HCPCS: 76816

== ENCOUNTER 2024-01-26 05:19 | Inpatient (IN) | payer OTHER, SELFPAY ==
[2024-01-26] VITALS (16 sets, daily range): BP systolic 98–138; BP diastolic 55–92; PULSE 68–109; RESP 14–85; TEMP 36.1–36.9; O2SAT 95–100; BMI 44.9
[2024-01-26] MEDS: Lactated Ringers 1,000 ML 999 ML IV (05:20)
[2024-01-26 05:39] LABS: Absolute Lymphocyte Count 2.99 X10^3/uL (0.83-4.51); Absolute Neutrophil Count 6.8 X10^3/uL (2.0-7.7); Basophil# 0.02 X10^3/uL; Basophil% 0.2 % (0-1); Eosinophil# 0.07 X10^3/uL; Eosinophils% 0.7 % (0-5); Hemoglobin 11.6 g/dL (12.0-15.0); Lymphocyte # 2.99 X10^3/ul (0.83-4.51); Lymphocyte % 28.2 % (19-41); Mean Corp Hgb Conc 34.1 g/dL (32-36); Mean Corpuscular Hgb 30.1 pg (27.0-32.0); Mean Corpuscular Volume 88.3 fL (81-99); Mean Platelet Vol. 10.6 fl (6.2-12.0); Monocyte# 0.62 X10^3/uL; Monocyte% 5.9 % (0-10); NRBC Flagged by Analyzer 0 % (0-5); Neutrophil # 6.83 X10^3/uL (2.7-7.7); Neutrophil % 64.4 % (47-70); Platelet Count 225 K/mm3 (150-450); RBC Distribution Width SD 44.8 fl (35.1-43.9); Red Blood Count 3.85 M/mm3 (4.2-5.4); White Blood Count 10.6 K/mm3 (4.4-11.0)
[2024-01-26] MEDS: Acetaminophen 500 MG Tablet 1000 MG PO ×3 (05:53→17:59)
[2024-01-26] MEDS: hydrOXYzine PAM 25 MG Capsule PO (05:53)
[2024-01-26 06:13] LABS: Bedside Glucose 95 mg/dL (74-106)
[2024-01-26 06:14] LABS: Syphilis Antibodies Non-reactive
[2024-01-26] MEDS: Sodium Citrate/Citric Acid 30 ML UDC PO (06:38)
--- NOTE | 2024-01-26 07:14 | HP.PCM.OB_ITS ---
HPI - General General Date of Admission: 01/26/24 HPI Narrative MICHELLE JOHNSON, is a 38 y/o @ 38 weeks 5 days who presents to L&D for a primary section for breech. her amniotic fluid level was 35 and growth is 99th% Her fasting glucose levels have been elevated despite early 3rd trimester normal glucose tolerence test. The diagnosis of presumed uncontrolled diabetes was made. Maternal Data Information JOS Calculator Estimated Delivery Date Method Current WG Current Estimate 02/04/24 Conception 38w 5d Other Estimates 02/04/24 LMP (Uncertain) 38w 5d PFSH [facility] Medical History (Updated 01/26/24 @ 07:[address] Janet Howe, DO) Polyhydramnios HPV test positive Vaginal delivery Seasonal allergies SOB (shortness of breath) Home Medications ?Medication ?Instructions ?Recorded ?Last Taken ?Type docosahexaenoic acid 200 mg mg PO 06/24/23 Unknown History capsule ( DHA) Allergy/AdvReac Type Severity Reaction Status Date / Time Penicillins Allergy Intermediate Unknown Verified 01/26/24 05:36 animal dander Allergy Unknown Verified 01/26/24 05:36 tree nut AdvReac Severe Other Verified 01/26/24 05:36 vancomycin AdvReac Shortness Verified 01/26/24 05:36 of breath Family History Mother Hypertension Father Colon cancer Surgical History No significant past surgical history Social History adopted: No household members: spouse and children housing: house number of children: 2 current occupational status: employed 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 alternate days frequency: 5-6 times per week duration: 15-30 minutes/day xavier/alevism: Gnosticism seatbelt use: always do you feel safe at home: Yes additional social history: : Jesus Infante .. Journey Man level 3 History 2 Elective abortions Hx Para 1 Spontaneous abortions Hx # Term Pregnancies Ectopic pregnancies Hx # Pregnancies Multiple births # of living children 1 Past Pregnancies Del. Date Name GA/Weeks Outcome Route Bth Weight Infant Gen Labor Lgth Anesthesia Del Locatn Provider FOB 01/15/21 Miranda 40 live - full term 8lbs 6oz Female [facility] Dr. Leblanc Visit Details Expected Delivery Route/Plan Labor Preferences- CB/BF classes: [] labor support person: [] labor intervention preferences: [] pain management options preferred: [] cut cord/dad catch: [] : [] PP control planned: [] discussed possible routes of delivery and associated risks: [] special requests: [] Plans Covid status: [] Flu vaccine: given Tdap vaccine: given Rhogam: na LARC form signed: declined movement and labor precautions reviewed. Problem list reviewed and updated with the most current plan of care details and appropriate orders placed. Relevant counseling for the gestational age provided. Continue routine care and follow up unless otherwise noted in visit notes/problem list details OB Flowsheet Initial Weight: Not Recorded Date -?-?-?-?-?-?-?-?-?-?-?-?- EGA Weight BP Urine Prot -?-?--?-?-?-?-?-?-?-?-?-?- Glucose FHR FuHt Pres Dilation -?-?-?-?-?-?-?-?--?-?-?-?- Effaced St Visit Note 07/01/23 -?-?-?-?-?-?-?-?-?-?-?-?- 8w 6d 230 lb 8 oz 136/85 -?-?-?-?-?-?-?-?-?-?-?-?- 168 -?-?-?-?-?-?-?-?-?-?-?-?- LC CRL 20 con wi th LMP. accepts nipt. hbga1c for obesity. AMA. 07/27/23 -?-?-?-?-?-?-?-?-?-?-?-?- 12w 4d 233 lb 2 oz 133/72 Nega tive -?-?-?-?-?-?-?-?-?-?-?-?- Negative 157 -?-?-?-?-?-?-?-?-?-?-?-?- JV- no complaint s today. a1c was 5. NIPT is pending. 08/22/23 -?-?-?-?-?-?-?-?-?-?-?-?- 16w 2d 233 lb 8 oz 133/87 -?-?-?-?-?-?-?-?-?-?-?-?- 160 -?-?-?-?-?--?-?-?-?-?-?-?- KW- no vb/crampi ng. AFP accepted. having a girl! 09/23/23 -?-?-?-?-?-?-?-?-?-?-?-?- 20w 6d 245 lb 4 oz 134/82 -?-?-?-?-?-?-?-?-?-?-?-?- 160 21 -?-?-?-?-?-?-?-?-?-?-?-?- KW- no vb/crampi ng. good fm. Discuss anatomy scan and growth US q4 weeks and NSTs at 36 weeks for AMA per MFM. 10/19/23 -?-?-?-?-?-?-?-?-?-?-?-?- 24w 4d 246 lb 138/79 Negative -?-?-?-?-?-?-?-?-?-?-?-?- Negative 150 24 -?-?-?-?-?-?-?-?-?-?-?-?- SM- no vb lof go od fm n oregular ctx discussed ama screening 11/16/23 -?-?-?-?-?-?-?-?-?-?-?-?- 28w 4d 252 lb 141/90 112/73 Negative -?-?-?-?-?-?-?-?-?-?-?-?- Negative 145 28 -?-?-?-?-?-?-?-?-?-?-?-?- SM- no vb lof go od fm no regular ctx doing 3 hour gtt 12/02/23 -?-?-?-?-?-?-?-?-?-?-?-?- 30w 6d 249 lb 8 oz 121/72 Nega tive -?-?-?-?-?-?-?-?-?-?-?-?- Negative 140 31 -?-?-?-?-?-?-?-?-?-?-?-?- SM- no vb lof go o dfm no reguar ctx flu vaccine given 12/15/23 -?-?-?-?-?-?-?-?-?-?-?-?- 32w 5d 252 lb 8 oz 130/83 Nega tive -?-?-?-?-?-?-?-?-?-?-?-?- Negative 141 33 -?-?-?-?-?-?-?-?-?-?-?-?- JV- JV- no lof, vaginal bleeding , or dec fm. has a growth scan coming up. 12/29/23 -?-?-?-?-?-?-?-?-?-?-?-?- 34w 5d 258 lb 128/82 Negative -?-?-?-?-?-?-?-?-?-?-?-?- Negative 140 -?-?-?-?-?-?-?-?-?-?-?-?- SM- discussed gr owth scan, will check BS this week. no vb lof good fm no regular ctx 01/05/24 -?-?-?-?-?-?-?-?-?-?-?-?- 35w 5d 258 lb 125/85 Negative -?-?-?-?-?-?-?-?-?-?-?-?- Negative 140 -?-?-?-?-?-?-?-?-?-?-?-?- -NST only reac tive 01/13/24 -?-?-?-?-?-?-?-?-?-?-?-?- 36w 6d 256 lb 129/71 -?-?-?-?-?-?-?-?-?-?-?-?- 130 Breech -?-?-?-?-?-?-?-?-?-?-?-?- KW- NST reactive . no vb/lof/ctx. good fm. KW- NST reactive. no vb/lof/ ctx. good fm. has another growth US on 01/24. scanned today for position-breech today. was breech at last growth. discussed version and wants to consider ROS Constitutional Constitutional: Denies change in weight, fatigue, fever(s), headache(s), poor appetite or weakness Eyes Eyes: Denies blurry vision, change in vision, seeing flashes or spots in vision ENT HEENT: Denies dizziness, headache(s), loss taste/smell or sore throat Cardiovascular Cardiovascular: Denies chest pain, dizziness, dyspnea, irregular heart rhythm, leg edema, palpitations, rapid heart rate or vomiting Respiratory/Chest Respiratory/Chest: Denies chest tightness, cough, dyspnea or breast pain Gastrointestinal Gastrointestinal: Denies abdominal pain, anorexia, constipation, cramping, diarrhea, hemorrhoids, vomiting or weight changes Genitourinary Genitourinary: Denies dysuria, flank pain, genital lesions, genital pain, urinary frequency or urinary urgency Musculoskeletal Musculoskeletal: Denies back pain, difficulty walking, joint pain, limited range of motion, muscle cramps or numbness Integumentary Integumentary: Denies lesions or unusual bruising Neurologic Neurologic: Denies abnormal movements, abnormal speech, dizziness, numbness, seizure-like activity or syncope Psychiatric Psychiatric: Denies anxiety, behavioral changes, change in appetite, change in libido, cognitive impairment, confusion, depression, difficulty concentrating, hallucinations or suicidal thoughts Endocrine Endocrinology: Denies excessive sweating, polydipsia or polyuria Hematologic/Lymphatic Hematologic/Lymphatic: Denies easy bleeding, easy bruising or lymphadenopathy Allergic/Immunologic Allergic/Immunologic: Denies itchy eyes, lip swelling, seasonal rhinorrhea, rhinitis, throat swelling, tongue swelling, eczemia, wheezing or asthma Vital Signs Vital Signs Vital Signs: 01/26/24 05:38 Temperature 98.4 F Temperature Source Temporal Pulse Rate 109 H Respiratory Rate 16 Blood Pressure 138/79 H Blood Pressure Mean 98 Blood Pressure Source Monitor Blood Pressure Position Semi-Fowlers Blood Pressure Location Right Arm Pulse Ox 97 Oxygen Delivery Method Room Air Weight Weight: 254 lb Body Mass Index (BMI) 44.9 Physical Exam Const alert, oriented x3, no apparent distress and healthy appearing General Appearance: cooperative; Negative for anxious HEENT normocephalic Face and Sinus: normal facial exam Eyes EOMs intact bilaterally and no scleral icterus General Eye: normal appearance of both eyes Neck full ROM and supple Lymph Lymphatic: no lymphadenopathy noted Chest Chest: abnormal inspection of the chest Resp normal respiratory effort Effort and Inspection: able to speak in complete sentences Cardio regular rate GI soft to palpation and non-tender Inspection: gravid Palpation: soft; Negative for tender Back/Spine no CVA tenderness Extremity normal to inspection, full ROM and no clubbing, cyanosis or edema General Extremity: Negative for calf tenderness or edema Skin Lesions: no lesions Rashes: no rashes Psych mental status grossly normal Labs Labs Labs: Blood Type O POSITIVE Antibody Screen NEGATIVE Hct 34.0 % (37-47) L Hgb 11.6 g/dL (12.0-15.0) L Pap Smear Negative Obstetrics Ultrasound Syphilis Total Ab Non-reactive Rubella IgG Antibody Reactive (Nonreactive) Hep Bs Antigen Non-Reactive (Nonreactive) Hepatitis C Antibody Non-Reactive (Nonreactive) Chlamydia DNA (JULIO CÉSAR) Negative (Negative) N.gonorrhoeae DNA (JULIO CÉSAR) Negative (Negative) HIV 1&2 Antibody Non-Reactive (Nonreactive) Glucose 1 Hr 50 gm 139 mg/dL (70-140) Gest Glucose Tolerance MG/DL Rhogam given: No Miscellaneous Test Assessment & Plan (1) Polyhydramnios affecting : (2) Breech presentation: COMMENT: at growth US. Please discuss External version (3) Abnormal glucose level: COMMENT: 3 HR GTT: close to abnormal values. Enc to watch diet. AC over 95ile, checking BS and will bring in next week (12/28) (4) AMA (advanced maternal age) multigravida 35+: QUALIFIERS: Trimester: third trimester Qualified Code(s): O09.523 - Supervision of elderly multigravida, third trimester COMMENT: [facility] us. accepts nipt and AFP growth scans every 4 weeks nsts starting 34 weeks (5) Obesity: QUALIFIERS: Obesity type: due to excess calories Obesity classification: unspecified obesity classification Serious obesity comorbidity presence: without serious comorbidity Qualified Code(s): E66.09 - Other obesity due to excess calories COMMENT: NST at 34 weeks. nob with hgba1c labs. (6) Supervision of high-risk : QUALIFIERS: Trimester: third trimester Qualified Code(s): O09.93 - Supervision of high risk , unspecified, third trimester COMMENT: PRR, , JOS 02/04/24, girl, PC: Miranda, : Jesus (7) : QUALIFIERS: Weeks of gestation: 37 weeks Qualified Code(s): Z3A.37 - 37 weeks gestation of COMMENT: GBS neg, NIPT low risk, had carrier testing done with prior . (8) HPV test positive: COMMENT: repeat pap 1 yr- repeated 06/30
[2024-01-26] MEDS: Gentamicin IV 260 MG in Dextrose 5%-Water (50mL Bag) 50 ML 100 MG IVPB (07:26)
--- NOTE | 2024-01-26 07:35 | DCINST_ITS ---
Discharge Instructions Diet Discharge Diet: No restrictions Activity Discharge Activity: May Not Drive (for 2 weeks or while taking narcotic pain medications.), May Shower and May Take a Tub Bath (in 7 days.) May resume sexual activity in: 4-6 weeks Weight Bearing Status: Full weight bearing Lifting Restrictions: 20 pounds Dressing / Incision Call your doctor if your incision/area has: Continuous Slow Oozing, Sudden Increased Bleeding, Increased Pain/ Swelling, Increased Redness and Foul Smelling Discharge Call your doctor if you observe: Fever of 101 or Higher and Using more than 1 pad per hour Suture Line Care: Avoid Pulling/Pushing and Avoid Pinching/Bending Cleanse incision/area with: Soap & Water and Keep Dressing Clean & Dry Follow Up Care Please Follow Up With: Janet Howe DO When: Call [phone] to make an appointment for an incision check in 1-2 weeks. Test Results: Test results from this visit will be discussed in further detail at your follow- up appointment, if applicable. Discharge Plan Admission Admit Date/Time: 01/26/24 05:19 Primary Reason for Your Visit: section Attending Provider: Janet Howe Primary Care Provider: Guille Butler Discharge Orders/Prescriptions Prescriptions: New ibuprofen 800 mg tablet 800 mg PO Q8H PRN (Reason: pain) Qty: 30 0RF oxycodone-acetaminophen [Percocet] 5-325 mg tablet 1 tab PO Q4H PRN (Reason: pain) 7 Days Qty: 30 0RF Rx Instructions: 1-2 tabs q 4 hrs as needed for pain No Action DHA 200 mg capsule PO Referrals / Follow Up: Guille Butler MD [Primary Care Provider] - Disposition Disposition (needs filled in before D/C Order can be placed): Home, Self Care
[2024-01-26] MEDS: Clindamycin 900 MG/50 ML BAG 75 MG IV (07:46)
--- NOTE | 2024-01-26 08:42 | EX.PCM.OBRPT ---
Assessment & Plan (1) Polyhydramnios affecting : (2) Breech presentation: COMMENT: at growth US. Please discuss External version (3) Abnormal glucose level: COMMENT: 3 HR GTT: close to abnormal values. Enc to watch diet. AC over 95ile, checking BS and will bring in next week (12/28) (4) AMA (advanced maternal age) multigravida 35+: QUALIFIERS: Trimester: third trimester Qualified Code(s): O09.523 - Supervision of elderly multigravida, third trimester COMMENT: [facility] us. accepts nipt and AFP growth scans every 4 weeks nsts starting 34 weeks (5) Obesity: QUALIFIERS: Obesity type: due to excess calories Obesity classification: unspecified obesity classification Serious obesity comorbidity presence: without serious comorbidity Qualified Code(s): E66.09 - Other obesity due to excess calories COMMENT: NST at 34 weeks. nob with hgba1c labs. (6) Supervision of high-risk : QUALIFIERS: Trimester: third trimester Qualified Code(s): O09.93 - Supervision of high risk , unspecified, third trimester COMMENT: PRR, , JOS 02/04/24, girl, PC: Miranda, : Jesus (7) : QUALIFIERS: Weeks of gestation: 37 weeks Qualified Code(s): Z3A.37 - 37 weeks gestation of COMMENT: GBS neg, NIPT low risk, had carrier testing done with prior . Maternal Data Information JOS Calculator Estimated Delivery Date Method Current WG Current Estimate 02/04/24 Conception 38w 5d Other Estimates 02/04/24 LMP (Uncertain) 38w 5d Final JOS Source: LMP Operative Report (OB) Cecarean Details Procedure Type: low transverse Surgeon: Janet Howe Date of Procedure: 01/26/24 Procedure Start Time: 07:54 Procedure Stop Time: 08:24 Time of Delivery: 07:59 Pre-Operative Diagnosis: Breech and Other (suspect uncontrolled diabetes, polyhydramnios ) Other Pre-Operative diagnosis: none Post-Operative Diagnosis: Same as Pre-operative diagnosis Classification: Scheduled Type of Anesthesia: Spinal Antibiotic Given: Clindamycin 600mg IV x1 and Gentamicin 1.5mg/kg IV x1 Drain: Ibrahim to straight drain Estimated Blood Loss: 700cc Findings Description of surgery: The patient is a 38 y/o at 38 weeks 5 days presented for a primary for breech, polyhydramnios, and uncontrolled dm. Spinal anesthesia was placed without difficulty. Ibrahim catheter was placed. The patient was placed in the dorsal supine position with leftward tilt. Patient was prepped and draped in the normal sterile fashion. Pfannenstiel skin incision was made with the scalpel and carried through to the underlying layer of fascia with the scalpel. Fascia was nicked in the midline and the incision extended laterally. The rectus bellies were dissected off superiorly and inferiorly with out complication both sharply and bluntly. The peritoneum was entered digitally. The incision was stretched and a low transverse uterine incision was made with the scalpel. The 's buttocks was first delivered followed by the torso, then anterior and posterior arms. Thehead was delivered atraumatically followed by the anterior and posterior shoulders without complication the rest of the infant delivered. The cord was clamped and cut and the infant was handed off to awaiting nurse. The placenta was delivered spontaneously immediately following and was noted to be intact and have a three-vessel cord. The uterus was exteriorized cleared of all clots and debris, and the incision was closed in a double layer closure using #1 Monocryl. The ovaries and fallopian tubes were noted to be within normal limits. The uterus was returned to the maternal abdomen and gutters were cleared of all clots and debris. The peritoneum was closed with 3-0 Monocryl in a running fashion. G Fascia was closed with 0 PDS in a running fashion. Subcutaneous tissue was copiously irrigated and the skin was closed with 3-0 Monocryl in a subcuticular fashion. Mepilex dressing was applied without complication. Patient was taken to recovery in stable condition. Surgical findings: breech presentation, copious amounts of amniotic fluid, clear. Presentation: Jesus Breech Amniotic Membrane Rupture Type: Artificial Amniotic Fluid Description: Clear Placental Delivery Description: Manual Removal Placenta Disposition: [facility] Specimen collected: No Cord Vessel Description: 3 Vessels Cord Entanglement: None Cord Gases: ABG and VBG Infant A gender: Female Delayed Cord Clamping: No Lay Out Worker internal audit senior manager: Yes Mechanic Helper: Pedro Perez Tasks completed by assistant professor of surgery: Closing, Hemostasis: Clamp and Retracting Additional administrative library assistant?: No Complications Complications: No Multi Select Codes Urinary/Genital Urinary/Genital CPT Codes: 98116 Delivery global pkg
[2024-01-26] MEDS: Oxytocin 15 Units/NS 250ml 15 UNITS/250 ML IV.SOLN 83 UNITS IV (08:50)
[2024-01-26] MEDS: Ketorolac 30 MG/ML Syringe IV ×2 (09:35→15:02)
[2024-01-26] MEDS: Senna/Docusate Sodium 1 Tablet PO (09:36)
[2024-01-26 11:15] LABS: Bedside Glucose 88 mg/dL (74-106)
[2024-01-26] MEDS: LACTATED RINGERS 500 ML 999 ML IV (12:30)
[2024-01-26] MEDS: 0.9% Saline Lock 10 ML Syringe IV (15:02)
[2024-01-26] MEDS: Enoxaparin 40 MG/0.4 ML Syringe SC (20:13)
[2024-01-26] MEDS: Ibuprofen 600 MG Tablet PO (21:31)
[2024-01-27] VITALS (8 sets, daily range): BP systolic 105–127; BP diastolic 57–81; PULSE 56–76; RESP 16–18; TEMP 36.1–36.6; O2SAT 95–99
[2024-01-27] MEDS: Acetaminophen 500 MG Tablet 1000 MG PO ×4 (00:02→19:14)
[2024-01-27 01:28] LABS: Bedside Glucose 136 mg/dL (74-106)
[2024-01-27] MEDS: Ibuprofen 600 MG Tablet PO ×4 (03:30→23:30)
[2024-01-27 06:50] LABS: Bedside Glucose 102 mg/dL (74-106)
--- NOTE | 2024-01-27 07:28 | PN.OBGYN_ITS ---
Subjective Subjective Patient is laying in bed comfortably without complaints. She states that she slept on an off during the night. Lochia is mild and pain is minimal. The baby is in the NICU for apnea yesterday. Objective Data Objective Data Vital Signs: Vital Signs Temp Pulse Resp BP Pulse Ox O2 Del Method 97.0 F L 65 16 105/64 98 Room Air 01/27/24 03:27 01/27/24 03:27 01/27/24 06:05 01/27/24 03:27 01/27/24 06:05 01/27/24 06:05 Oxygen Delivery Method Room Air Weight: 254 lb Body Mass Index (BMI) 44.9 Intake & Output: Intake and Output for Last 24 Hours 01/25/24 01/26/24 01/27/24 23:59 23:59 23:59 Intake Total 3106.50 / 3106.50 Output Total 2689 / 2689 175 / 175 Balance 417.50 / 417.50 -175 / -175 Lab / Micro Data 01/26/24 05:20 Labs: Laboratory Results - last 24 hr 01/26/24 05:20: Blood Type O POSITIVE, Antibody Screen NEGATIVE 01/26/24 10:39: POC Glucose 88 01/27/24 00:04: POC Glucose 136 H 01/27/24 06:16: POC Glucose 102 ROS Constitutional Constitutional: Reports systems reviewed and no addt'l complaints, except as documented Cardiovascular Cardiovascular: Denies chest pain, dizziness, dyspnea or irregular heart rhythm Respiratory/Chest Respiratory/Chest: Denies cough, pain on inspiration or shortness of breath at rest Gastrointestinal Gastrointestinal: Denies abdominal pain, nausea or vomiting Genitourinary Genitourinary: Denies burning urination Musculoskeletal Musculoskeletal: Denies muscle cramps, muscle spasms or muscle weakness Neurologic Neurologic: Denies confusion, dizziness, headache(s) or lack of coordination Psychiatric Psychiatric: Denies anxiety, behavioral changes or depression Physical Exam HEENT normocephalic Resp normal respiratory effort and normal air movement GI soft to palpation, non-tender and non-distended Rectal Exam: other Other Details: Incision is clean, dry, and intact no CVA tenderness Extremity normal to inspection General Extremity: edema bilateral (trace ) Assessment & Plan (1) Status post section: (2) Polyhydramnios affecting : (3) Breech presentation: COMMENT: at growth US. Please discuss External version (4) Abnormal glucose level: COMMENT: 3 HR GTT: close to abnormal values. Enc to watch diet. AC over 95ile, checking BS and will bring in next week (12/28) (5) AMA (advanced maternal age) multigravida 35+: QUALIFIERS: Trimester: third trimester Qualified Code(s): O09.523 - Supervision of elderly multigravida, third trimester COMMENT: [facility] us. accepts nipt and AFP growth scans every 4 weeks nsts starting 34 weeks (6) Obesity: QUALIFIERS: Obesity type: due to excess calories Obesity classification: unspecified obesity classification Serious obesity comorbidity presence: without serious comorbidity Qualified Code(s): E66.09 - Other obesity due to excess calories COMMENT: NST at 34 weeks. nob with hgba1c labs. (7) Supervision of high-risk : QUALIFIERS: Trimester: third trimester Qualified Code(s): O09.93 - Supervision of high risk , unspecified, third trimester COMMENT: PRR, , JOS 02/04/24, girl, PC: Miranda, : Jesus (8) : QUALIFIERS: Weeks of gestation: 37 weeks Qualified Code(s): Z 3A.37 - 37 weeks gestation of COMMENT: GBS neg, NIPT low risk, had carrier testing done with prior . (9) HPV test positive: COMMENT: repeat pap 1 yr- repeated 06/30 PLAN: Plan s/p LTCS PPD # 1 1. routine post care 2. breast feeding- support given 3. rh positive 4. rubella immune 5. plan for discharge later this weekend
[2024-01-27 07:50] LABS: Hematocrit 32.4 % (37-47); Hemoglobin 10.5 g/dL (12.0-15.0); Mean Corp Hgb Conc 32.4 g/dL (32-36); Mean Corpuscular Hgb 29.2 pg (27.0-32.0); Mean Corpuscular Volume 90.3 fL (81-99); Mean Platelet Vol. 10.8 fl (6.2-12.0); Platelet Count 244 K/mm3 (150-450); RBC Distribution Width CV 14.3 % (11.6-14.6); RBC Distribution Width SD 47.5 fl (35.1-43.9); Red Blood Count 3.59 M/mm3 (4.2-5.4); White Blood Count 10.5 K/mm3 (4.4-11.0)
[2024-01-27] MEDS: oxyCODONE 5 MG Tablet PO ×2 (08:00→13:17)
[2024-01-27] MEDS: Enoxaparin 40 MG/0.4 ML Syringe SC ×2 (08:02→20:00)
[2024-01-27] MEDS: Senna/Docusate Sodium 1 Tablet PO (09:47)
--- NOTE | 2024-01-27 11:24 | CASEMGMT ---
Social Work Assessment Labor and Delivery Unit Patient Address:[address] [place] [address] Phone number: [phone] Date of Referral: 01/26/24 Time of Referral:? 2153 Referred By: Dr. Howe Date of Intervention: ?01/27/24? Time of Intervention:? 1030 Reason for Referral:? mental health Sw completed chart review and acknowledges social work consult due to maternal mental health history. Sw presented to bedside and introduced self to mother of baby (LISA Cantu). Sw explained reason for sw involvement and completed psychosocial assessment. History obtained from: medical records and mother of baby (TRENA)??? Household composition: Currently residing in the family home is MOB, father of baby (MACIEJ- Jesus), the couples 3 year old daughter, Miranda, and MACIEJ's 16 year old daughter from a prior relationship who lives with family 50% of the time. No housing concerns, TRENA reports home is safe and secure. Patient's parent/guardian status:? TRENA states that she and MACIEJ met online in 2018 and got in 2019. TRENA denies domestic violence or intimate partner violence. ? Medical History: ?TRENA is 38 year old female who is graivda 3, para 1- 2 following labor and delivery of . TRENA received routine care during with [facility]. TRENA states that she discovered that baby was breech and presented to hospital to delivery baby on 01/26/24 via scheduled . Baby girl, Do, was born weighing 9# and her apgars were 3, 6, and 8 at three, five and ten minutes of life, respectfully. Baby ultimately required transfer to [facility] Special Care Nursery due to respiratory distress. Her earliest discharge date is Tuesday 01/30. TRENA states that she is bottle feeding baby and bay will be followed by Dr. Hensley for pediatrics. Educational Status:? TRENA has obtained her Master's degree and MACIEJ graduated from high school. No concerns with reading, learning or comprehension. Financial Status: Both parents are gainfully employed working for the family's [employer] company. MACIEJ is taking a month off of work. TRENA is able to take off as much time as she needs. TRENA states that she works from home so her transition to returning to work will not be difficult. Infant Supplies: Parents have obtained all necessary baby supplies, including: car seat, safe sleep space, clothes, diapers and wipes. Childcare/Caregiver(s):?TRENA states that she will be the primary caregiver to baby along with MACIEJ when he is not working. Transportation:?? Both parents have their drivers license and reliable means of transportation, no barriers at this time. Programs/Agencies Involved: ???Family is not connected to any community agencies that assist them financially at this time as they are over income. Children Services/Legal Issues:???No history of children services involvement, no issues or concerns warranting referral to be made at this time. Behavioral Health Issues: ??Mental Health History:?MOB states that MACIEJ does not have any mental health diagnoses. MOB states that she has never been diagnosed with anxiety or depression, but does endorse experiencing some posrtpartum anxiety after the of her first daughter. MOB states at that time she did not recognize that she was experiencing symptoms, but her mom and her sister did. MOB states that they pointed out to TRENA that she was struggling, and then she was able to see what she was dealing with. MOB states that she did not feel fully prepared to be a first time mom, as she states that you don't really know anything until you do it. MOB states that this time she feels much more calm and at ease, she denies feeling anxious. MOB states that even though baby is in SCN she is not upset, overwhelmed or anxious. ? Substance Use History:?MOB denies substance use prior to and during . ? Family History:?MOB denies family history of substance use or significant mental health diagnoses. ? Drug Screens: No drug screens observed in chart review. Family/Social Stressors:? MOB denies any stressors, issues or concerns at this time. MOB states that even though baby is in special care, that has brought her some comfort because she knows that baby is getting additional medical attention. Support Systems: MOB identifies that MACIEJ and her parents are her biggest supports. Depression/Shaken Baby/Safe Sleeping: Sw educated MOB on signs and symptoms of baby blues and mood and anxiety disorders to be mindful of during this period. MOB states that she is familiar with the terms and what to be on the lookout for after experiencing anxiety after her first baby was born. MOB states that MACIEJ may not always be able to recognize when she is struggling with her mental health, but she feels comfortable talking to him about it. MOB states that once she brings her concerns to FOB's attention he is attentive and supportive of her needs. MOB states that she also has her mom and her sister who are mindful and supportive of her mental health. Sw educated MOB on shaken baby prevention and ABCs of safe sleep. MOB expressed understanding. ASSESSMENT:? MOB and baby admitted following labor and delivery. MOB states that she is in a lot of pain following a first time . MOB states that she is thankful that baby is in the Special Care Unit and appreciative of all the help and manager support services are providing. MOB with mental health history following the delivery of her first baby that includes anxiety. MOB acknowledges that during that time she was anxious about baby getting sick as it was during COVID. MOB states that this time she feels much more calm and at peace, denies anxiety. MOB has natural supports in place that are able to assist her and support her mentally. MOB has everything that she needs for baby. MOB made eye contact and participated openly during completion of psychosocial assessment. MOB extremely pleasant and talkative, denies any needs or concerns. PLAN:?? No other services requested or indicated. MOB and baby to be discharged when medically ready. Parents were provided literature regarding: signs and symptoms of baby blues and mood and anxiety disorders, Help Me Grow, shaken baby prevention, ABCs of safe sleep and a list of county resources that are available for them should any needs present themselves. Sandoval Castillo, DISABILITY HEARING OFFICER, [employer]
[2024-01-28] MEDS: Acetaminophen 500 MG Tablet 1000 MG PO ×4 (01:08→19:47)
[2024-01-28 02:00] VITALS: BP 127/71; PULSE 76; RESP 18; TEMP 36.6; O2SAT 98
[2024-01-28] MEDS: Ibuprofen 600 MG Tablet PO ×3 (05:30→17:56)
[2024-01-28 07:40] VITALS: BP 122/64; PULSE 71; RESP 16; TEMP 36.4; O2SAT 100
[2024-01-28] MEDS: Enoxaparin 40 MG/0.4 ML Syringe SC (07:44)
--- NOTE | 2024-01-28 09:54 | PCM.PN.OB ---
Subjective Subjective Patient is sitting in the nicu chair with her baby comfortably without complaints. She states that she slept on an off during the night. Lochia is mild and pain is minimal. The baby will likely be discharged tomorrow. Objective Data Objective Data Vital Signs: Vital Signs Temp Pulse Resp BP Pulse Ox O2 Del Method 97.5 F L 71 16 122/64 H 100 Room Air 01/28/24 07:40 01/28/24 07:40 01/28/24 07:40 01/28/24 07:40 01/28/24 07:40 01/28/24 07:40 Oxygen Delivery Method Room Air Weight: 254 lb Body Mass Index (BMI) 44.9 Intake & Output: Intake and Output for Last 24 Hours 01/26/24 01/27/24 01/28/24 23:59 23:59 23:59 Intake Total 3106.50 / 3106.50 Output Total 2689 / 2689 1175 / 1175 Balance 417.50 / 417.50 -1175 / -1175 Lab / Micro Data 01/27/24 06:20 ROS Constitutional Constitutional: Reports systems reviewed and no addt'l complaints, except as documented Cardiovascular Cardiovascular: Denies chest pain, dizziness, dyspnea or irregular heart rhythm Respiratory/Chest Respiratory/Chest: Denies cough, pain on inspiration or shortness of breath at rest Gastrointestinal Gastrointestinal: Denies abdominal pain, nausea or vomiting Genitourinary Genitourinary: Denies burning urination Musculoskeletal Musculoskeletal: Denies muscle cramps, muscle spasms or muscle weakness Neurologic Neurologic: Denies confusion, dizziness, headache(s) or lack of coordination Psychiatric Psychiatric: Denies anxiety, behavioral changes or depression Physical Exam HEENT normocephalic Resp normal respiratory effort and normal air movement GI soft to palpation, non-tender and non-distended Rectal Exam: other Other Details: Incision is clean, dry, and intact no CVA tenderness Extremity normal to inspection General Extremity: edema bilateral (trace ) Assessment & Plan (1) Status post section: PLAN: s/p LTCS PPD #2 1. routine post care 2. breast feeding- support given 3. rh positive 4. rubella immune 5. patient's pain is improving. plan for dc to home by tomorrow.
[2024-01-28] MEDS: Senna/Docusate Sodium 1 Tablet PO (11:23)
[2024-01-28 13:38] VITALS: BP 135/81; RESP 16; TEMP 36.1; O2SAT 97
[2024-01-28 22:05] VITALS: BP 130/77; PULSE 77; RESP 17; TEMP 36.6; O2SAT 99
[2024-01-29] MEDS: Acetaminophen 500 MG Tablet 1000 MG PO ×2 (01:03→07:05)
[2024-01-29] MEDS: Ibuprofen 600 MG Tablet PO ×2 (01:03→07:06)
[2024-01-29 01:06] VITALS: BP 129/106; PULSE 79; RESP 16; TEMP 36.1
[2024-01-29 07:49] VITALS: BP 114/69; PULSE 72; RESP 16; TEMP 36.1; O2SAT 97
[2024-01-29] MEDS: Senna/Docusate Sodium 1 Tablet PO (11:00)
--- NOTE | 2024-01-29 11:05 | PCM.DC.SUM ---
Providers Date of Admission: 01/26/24 Primary Care Physician: Dr. 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 routine post care 2. breast feeding- support given 3. rh positive 4. rubella immune 5. patient's pain is improving. plan for dc to home by tomorrow. Medications at Discharge Home Medications docosahexaenoic acid 200 mg capsule ( DHA) mg PO 06/24/23 ibuprofen 800 mg tablet 800 mg PO Q8H PRN pain #30 tabs 01/26/24 oxycodone-acetaminophen 5 mg-325 mg tablet (Percocet) 1 tab PO Q4H PRN pain 7 days #30 tabs 01/26/24 Hospital Course Operations section Summary of Care Provided Minutes Spent on Discharge: 30 Hospital Course: The patient was admitted for a scheduled section for breech presentation on 01/26/2024. There were no complications. On day #1 she was tolerating pain well and ambulating, on day #2 she was up, visiting baby in the NICU. On day #3 she was asking to be discharged to home. Physical Exam HEENT normocephalic Resp normal respiratory effort and normal air movement GI soft to palpation, non-tender and non-distended Rectal Exam: other Other Details: Incision is clean, dry, and intact no CVA tenderness Extremity normal to inspection General Extremity: edema bilateral (trace ) Weight / BMI Weight Weight: 254 lb Body Mass Index (BMI) 44.9 ABG / Lab / Microbiology Data 01/27/24 06:20 D/C Instructions Discharge Diet: No restrictions May resume sexual activity in: 4-6 weeks Weight Bearing Status: Full weight bearing Call your doctor if your incision/area has: Continuous Slow Oozing, Sudden Increased Bleeding, Increased Pain/ Swelling, Increased Redness and Foul Smelling Discharge Call your doctor if you observe: Fever of 101 or Higher and Using more than 1 pad per hour Suture Line Care: Avoid Pulling/Pushing and Avoid Pinching/Bending Cleanse incision/area with: Soap & Water and Keep Dressing Clean & Dry Please Follow Up With: Janet Howe DO When: Call [phone] to make an appointment for an incision check in 1-2 weeks. Meaningful Use Info Meaningful Use Meaningful Use Diagnoses (Choose all that apply): None applicable Ischemic Stroke Statin Dosing Therapy Reference: STATIN DOSE THERAPY REFERENCE: * Patients > 75 years receive moderate or high dose statin therapy. * Patients 75 years or YOUNGER should receive HIGH intensity statin dose unless contraindicated. You will be required to document reason for non-treatment if statin daily dose does not meet guidelines. HIGH DOSE STATIN THERAPY DAILY Atorvastatin > than or = to 40 mg Rosuvastatin > than or = to 20 mg Amlodipine + Atorvastatin > than or = to 2.5/40 mg Ezetimibe + Simvastatin 10/80 mg Simvastatin 80mg Discharge Plan Admission Admit Date/Time: 01/26/24 05:19 Primary Reason for Your Visit: section Attending Provider: Janet Howe Primary Care Provider: Guille Butler Discharge Orders/Prescriptions Prescriptions: New ibuprofen 800 mg tablet 800 mg PO Q8H PRN (Reason: pain) Qty: 30 0RF oxycodone-acetaminophen [Percocet] 5-325 mg tablet 1 tab PO Q4H PRN (Reason: pain) 7 Days Qty: 30 0RF Rx Instructions: 1-2 tabs q 4 hrs as needed for pain No Action DHA 200 mg capsule PO Referrals / Follow Up: Guille Butler MD [Primary Care Provider] - Disposition Disposition (needs filled in before D/C Order can be placed): Home, Self Care
== END 2024-01-29 11:20 | disposition home or self-care (01) | DRG 786 ==
PROVIDERS: Admitting Provider Obstetrics & Gynecology; PCP Family Medicine; Referring Provider Obstetrics & Gynecology; Visit Provider Obstetrics & Gynecology
PROC: 10D00Z1 Extraction of Products of Conception, Low, Open Approach (ICD-10-PCS; CPT 59514; principal; 2024-01-26 07:00)
DX: O32.1XX0 Maternal care for breech presentation, not applicable or unspecified (principal); O24.12 Pre-existing type 2 diabetes mellitus, in childbirth; E66.09 Other obesity due to excess calories; O40.3XX0 Polyhydramnios, third trimester, not applicable or unspecified; O99.214 Obesity complicating childbirth; Z37.0 Single live birth; Z3A.38 38 weeks gestation of pregnancy
CPT/HCPCS: 59050; 82962; 85025; 85027; 86780; 86850; 86900; 86901; 99221; J7120; A4216; G0378; J2405

== ENCOUNTER → 2024-03-12 | Outpatient (CLI) | payer OTHER, SELFPAY ==
[2024-03-16 14:08] LABS: HPV APTIMA, High Risk Negative (Negative)
== END | disposition home or self-care (01) ==
LOC: LABSPEC 16:20
PROVIDERS: PCP Family Medicine; Referring Provider Nurse Practitioner Women's Health; Visit Provider Nurse Practitioner Women's Health
DX: Z12.4 Encounter for screening for malignant neoplasm of cervix (principal)
CPT/HCPCS: 87624; 88175; G0145